=== PATIENT | female | born 1985 | race Two or more races ===

== ENCOUNTER 2019-07-13 12:45 | Inpatient (IN) | payer OTHER ==
[~2019-07-13] VITALS: Ht 160 cm; Wt 3.2 kg
[2019-08-02] MEDS ORDERED: IRON325 MG PO (10:14)
[2019-08-02] MEDS ORDERED: PRENATAL 19 TA1 EACH PO (10:15)
[2019-08-05] MEDS ORDERED: OXYC1TAB9 PO (08:14)
[2019-08-05] MEDS ORDERED: KETO10TA2 PO (08:14)
== END 2019-08-05 11:09 | disposition home or self-care (01) | DRG 785 ==
LOC: ADM 07-20 13:15 → EDSTATUS 07-20 13:15 → LDR 08-02 09:44 → O/R 08-02 09:44 → OB/GYN 08-02 13:49
PROVIDERS: ADMIT Obstetrics & Gynecology
PROC: 0UL70ZZ Occlusion of Bilateral Fallopian Tubes, Open Approach (ICD-10-PCS; 2019-08-02)
PROC: 4A1HXCZ Monitoring of Products of Conception, Cardiac Rate, External Approach (ICD-10-PCS; 2019-08-02)
PROC: 10D00Z1 Extraction of Products of Conception, Low, Open Approach (ICD-10-PCS; principal; 2019-08-02 13:45)
DX: O82 Encounter for cesarean delivery without indication (principal); Z3A.38 38 weeks gestation of pregnancy; Z37.0 Single live birth; Z30.2 Encounter for sterilization

== ENCOUNTER 2019-08-01 12:31 | Outpatient (CLI) | payer OTHER ==
[2019-08-02] MEDS ORDERED: IRON325 MG PO (10:14)
[2019-08-02] MEDS ORDERED: PRENATAL 19 TA1 EACH PO (10:15)
== END 2019-08-01 13:30 | disposition home or self-care (01) ==
LOC: NST 12:31
DX: Z34.83 Encounter for supervision of other normal pregnancy, third trimester (principal)